=== PATIENT | female | born 1985 | race Caucasian/White ===

== ENCOUNTER → 2016-06-14 | Outpatient (CLI) | payer BC ==
[~2016-06-14] MED LIST: AUGMENTIN875 MG PO; ENDOCET 5-3251 EACH PO; MOTRIN800 MG PO; Natalcare Rx,Pramile PO; ZYRTEC10 M2 PO
[2016-06-14 11:31] VITALS: BP 104/65
== END | disposition home or self-care (01) ==
LOC: IVINF 11:24
DX: Z67.11 Type A blood, Rh negative (principal); Z3A.28 28 weeks gestation of pregnancy
CPT/HCPCS: 96372; J2790

== ENCOUNTER 2016-08-25 06:53 | Inpatient (IN) | payer BC ==
[2016-08-25] VITALS (24 sets, daily range): BP systolic 89–133; BP diastolic 50–85
[~2016-08-25] VITALS: Ht 160 cm; Wt 65.0 kg
[2016-08-25 08:25] LABS: EOSINOPHIL (%) 0.3 % (0-5); HEMATOCRIT 29.4 % (36.0-46.0); IMMATURE GRANULOCYTE (%) 0.6 % (0.0-0.7); LYMPHOCYTE COUNT 1.2 K/uL (1.0-2.8); MCH 27.2 PG (29.0-34.0); MCHC 33.7 G/DL (30.0-36.0); MCV 80.8 FL (83-99); MEAN PLAT.VOLUME 9.2 uM^3 (9.5-12.4); MONOCYTE (%) 7.2 % (3-12); MONOCYTE COUNT 0.5 K/uL (0-0.8); NEUTROPHIL (%) 73.6 % (45-76); PLATELET COUNT 161 K/uL (156-360); RBC DIS.WIDTH-CV 13.2 % (11.8-14.6); RBC DIS.WIDTH-SD 38.2 % (39-53); RED BLOOD COUNT 3.64 M/uL (3.80-5.20); WHITE BLOOD COUNT 6.8 K/uL (4.1-10.2)
[2016-08-25] MEDS ORDERED: IBUPROFEN800 MG PO (20:55)
[2016-08-26 07:20] VITALS: BP 89/55
[2016-08-26 07:46] VITALS: BP 115/71
[2016-08-26 07:50] LABS: EOSINOPHIL (%) 0.2 % (0-5); HEMATOCRIT 29.8 % (36.0-46.0); IMMATURE GRANULOCYTE (%) 0.5 % (0.0-0.7); IMMATURE GRANULOCYTE COUNT 0.1 K/uL; INSTRUMENT ABS NEUTROPHIL CT 10.2 K/uL; LYMPHOCYTE COUNT 1.3 K/uL (1.0-2.8); MCH 26.2 PG (29.0-34.0); MCHC 32.2 G/DL (30.0-36.0); MCV 81.4 FL (83-99); MEAN PLAT.VOLUME 9.2 uM^3 (9.5-12.4); MONOCYTE (%) 6.8 % (3-12); MONOCYTE COUNT 0.8 K/uL (0-0.8); NEUTROPHIL (%) 81.9 % (45-76); NEUTROPHIL COUNT 10.2 K/uL (1.8-6.4); PLATELET COUNT 172 K/uL (156-360); RBC DIS.WIDTH-CV 13.2 % (11.8-14.6); RBC DIS.WIDTH-SD 38.5 % (39-53); RED BLOOD COUNT 3.66 M/uL (3.80-5.20); WHITE BLOOD COUNT 12.4 K/uL (4.1-10.2)
[2016-08-26 15:16] VITALS: BP 110/75
[2016-08-26 23:49] VITALS: BP 125/67
[2016-08-27 07:54] VITALS: BP 121/77
== END 2016-08-27 14:34 | disposition home or self-care (01) | DRG 775 ==
LOC: LDRP-OP 06:53 → 2WEST 06:54 → LDRP-OP 20:48 → 2WEST 08-27 14:34 → LDRP-OP 10-01 10:54
PROVIDERS: Obstetrics & Gynecology
PROC: 10907ZC Drainage of Amniotic Fluid, Therapeutic from Products of Conception, Via Natural or Artificial Opening (ICD-10-PCS; principal; 2016-08-25)
PROC: 3E0S3CZ (ICD-10-PCS; principal; 2016-08-25)
PROC: 3E033VJ Introduction of Other Hormone into Peripheral Vein, Percutaneous Approach (ICD-10-PCS; principal; 2016-08-25)
PROC: 00HU33Z Insertion of Infusion Device into Spinal Canal, Percutaneous Approach (ICD-10-PCS; principal; 2016-08-25)
PROC: 10E0XZZ Delivery of Products of Conception, External Approach (ICD-10-PCS; principal; 2016-08-25)
DX: O99.02 Anemia complicating childbirth (principal); O36.0930 Maternal care for other rhesus isoimmunization, third trimester, not applicable or unspecified; D50.9 Iron deficiency anemia, unspecified; Z37.0 Single live birth; Z3A.39 39 weeks gestation of pregnancy
CPT/HCPCS: 83030; 85025; 86870; 86900; 86901; 86905; 86920; C1755; J2790; J3010; J7120